=== PATIENT | female | born 2000 | race Caucasian/White ===

== ENCOUNTER 2020-05-30 21:42 | Emergency (ER) | payer BC ==
[2020-05-30 21:49] VITALS: TEMP 97.9
--- NOTE | 2020-05-30 22:15 | ED ---
Chest Pain HPI - General Chief Complaint: Chest Pain Stated Complaint: Chest Pain Time Seen by Provider: 05/30/20 22:13 Source: patient Mode of arrival: ambulatory Limitations: no limitations - History of Present Illness Initial Comments: Sanjuana is a previously healthy 19-year-old female who comes to the ER today for evaluation of approximately 90 minutes of chest pain. Patient reports that she has sharp pain around her sternum in her lower chest. Pain is worse with palpation or deep breaths. No shortness of breath, no exertional symptoms no lightheadedness diaphoresis. Patient has no history of DVT or PE. She has no family history of early cardiac disease. She's not had any recent illness nausea vomiting or cough. - Related Data Allergies Allergy/AdvReac Type Severity Reaction Status Date / Time No Known Allergies Allergy Verified 05/30/20 21:50 Review of Systems ROS Statement: Those systems with pertinent positive or pertinent negative responses have been documented in the HPI. ROS Other: All systems not noted in ROS Statement are negative. EKG Findings - EKG Comments: EKG Findings:: EKG was obtained due to complaint of chest pain, EKG was obtained at 2205, rate is 63 rhythm is sinus there is a normal axis, there is a short SC of 102, QRS is 84 QTc is 428 there are no acute ST elevations or depressions is no evidence of acute ischemia or infarction. Past Medical History Past Medical History: No Reported History History of Any Multi-Drug Resistant Organisms: None Reported Past Surgical History: No Surgical Hx Reported Past Psychological History: Anxiety, Depression Smoking Status: Never smoker Past Alcohol Use History: None Reported Past Drug Use History: None Reported General Exam - General Exam Comments Initial Comments: Physical Exam GENERAL: Patient is well-developed and well-nourished. Patient is nontoxic and well-hydrated and is in no distress. HENT: Normocephalic, Atraumatic. EYES: PERRL, EOMI PULMONARY: Unlabored respirations. CARDIOVASCULAR: RRR Warm and well perfused extremities Tenderness to palpation of the costochondral junction ABDOMEN: Non-distended SKIN: No rashes or bruising : Deferred NEUROLOGIC: Alert and oriented Normal speech Normal gait MUSCULOSKELETAL: Moving all extremities with no apparent injury PSYCHIATRIC: No SI/HI Limitations: no limitations Course Vital Signs 05/30/20 05/30/20 05/30/20 21:47 22:29 22:32 Temperature 97.9 F Pulse Rate 69 71 Pulse Rate [ 66 [facility] Of [facility] Department ] Respiratory 18 20 18 Rate Blood Pressure 117/76 123/84 O2 Sat by Pulse 97 99 Oximetry 05/30/20 23:00 Temperature Pulse Rate 73 Pulse Rate [ [facility] Department ] Respiratory 18 Rate Blood Pressure 119/84 O2 Sat by Pulse 97 Oximetry Chest Pain MDM - MDM 19-year-old female with no cardiac risk factors no risk factors for DVT PE, not tachycardic, hypoxic presenting with reproducible parasternal chest pain. EKG non-ischemic, no arrhythmia CXR unremarkable Patient treated with toradol, advised on supportive care and plan for discharge home Disposition Clinical Impression: Costochondritis Disposition: HOME SELF-CARE Condition: Stable Instructions (If sedation given, give patient instructions): Costochondritis (ED) Is patient prescribed a controlled substance at d/c from ED?: No Referrals: None,Stated [Primary Care Provider] - 1-2 days
[2020-05-30 22:33] VITALS: RESP 18
[2020-05-30 23:03] VITALS: BP 119/84; PULSE 73
[2020-05-30] MEDS ORDERED: KETOROLAC 15 MG/ML 1 ML VIAL IM STA (23:18)
--- NOTE | 2020-05-30 23:28 | XR ---
EXAMINATION TYPE: XR chest 2V DATE OF EXAM: 05/30/2020 COMPARISON: NONE HISTORY: Chest pain TECHNIQUE: 2 views FINDINGS: Heart and mediastinum are normal. Lungs are clear. Diaphragm is normal. Bony thorax appears normal. IMPRESSION: Normal chest. Normal heart.
== END 2020-05-30 23:31 | disposition home or self-care (01) ==
LOC: EC 21:42
DX: M94.0 Chondrocostal junction syndrome [Tietze] (principal)
CPT/HCPCS: 93005; 71046; 99285; 96372; J1885